=== PATIENT | male | born 1960 | race Caucasian/White ===

== ENCOUNTER 2017-03-25 09:32 | Emergency (ER) | payer BC | END 2017-03-25 10:54 | disposition home or self-care (01) | LOC: CED 09:32 → CFTX 09:32 | DX: S39.012A Strain of muscle, fascia and tendon of lower back, initial encounter (principal); R03.0 Elevated blood-pressure reading, without diagnosis of hypertension; E11.9 Type 2 diabetes mellitus without complications; X50.9XXA Other and unspecified overexertion or strenuous movements or postures, initial encounter | CPT/HCPCS: 96372; 99283; J1885 ==